=== PATIENT | male | born 1970 | race Hispanic/Latino ===

== ENCOUNTER 2021-01-12 22:27 | Emergency (ER) | payer OTHER, MEDICARE ==
[~2021-01-12] VITALS: Ht 195.6 cm; Wt 122.5 kg
[2021-01-12 22:38] VITALS: BP 132/93
[2021-01-12] MEDS ORDERED: ACETAMINOPHEN 500 MG TABLET PO ONE (23:00)
[2021-01-12] MEDS ORDERED: TETANUS/DIPHTHERIA TOXOID [ADULT] 0.5 ML VIAL IM ONE (23:00)
[2021-01-12] MEDS ORDERED: CEPH500C2 PO (23:40)
[2021-01-12] MEDS ORDERED: MUPI22OI2 TP (23:40)
== END 2021-01-12 23:48 | disposition home or self-care (01) ==
LOC: EDH 22:27
DX: S50.812A Abrasion of left forearm, initial encounter (principal); I10 Essential (primary) hypertension; E78.00 Pure hypercholesterolemia, unspecified; E11.9 Type 2 diabetes mellitus without complications; X58.XXXA Exposure to other specified factors, initial encounter; Y93.89 Activity, other specified; Y92.89 Other specified places as the place of occurrence of the external cause; Y99.8 Other external cause status
CPT/HCPCS: 90471; 90714

== ENCOUNTER 2021-01-26 01:43 | Emergency (ER) | payer OTHER, MEDICARE ==
[~2021-01-26] VITALS: Ht 195.6 cm; Wt 113.9 kg
[~2021-01-26 01:43] MED LIST: CEPH500C2 PO; MUPI22OI2 TP
[2021-01-26] MEDS ORDERED: KETOROLAC 15MG/ML VIAL (15MG/ML) IV ONE (03:00)
[2021-01-26] MEDS ORDERED: SOLU-MEDROL 125MG VIAL IVP ONE (03:00)
[2021-01-26 03:34] LABS: BASOPHILS % (AUTO) 0.4 % (0.0-5.0); EOSINOPHILS % (AUTO) 0.9 % (0.0-8.0); HEMATOCRIT 39.1 % (42-54); LYMPHOCYTES % (AUTO) 21.5 % (21.0-51.0); MEAN CORPUSCULAR HEMOGLOBIN 33.6 pg (27.0-33.0); MEAN CORPUSCULAR HGB CONC 37.6 g/dL (32.0-36.0); MEAN CORPUSCULAR VOLUME 89.3 fL (79-99); NEUTROPHILS % (AUTO) 64.9 % (40.0-77.0); PLATELET COUNT (AUTO) 144 K/uL (130-400); RED BLOOD CELL COUNT(AUTO) 4.38 MIL/uL (4.50-6.20); WHITE BLOOD COUNT (AUTO) 6.7 K/uL (4.8-10.8)
[2021-01-26 04:05] LABS: ALBUMIN 3.6 g/dL (3.5-5.0); CREATININE 0.8 mg/dL (0.5-1.5); CRP QUANTITATIVE 42.5 mg/L (0.00-9.0); POTASSIUM 3.6 mmol/L (3.5-5.1); TOTAL PROTEIN, SERUM 7.2 g/dL (6.0-8.3)
[2021-01-26] MEDS ORDERED: MORPHINE 4 MG SYG IV ONE (04:30)
[2021-01-26] MEDS ORDERED: ACET1TAB25 PO (04:32)
[2021-01-26] MEDS ORDERED: IBUP-2070 PO (04:32)
[2021-01-26 04:37] LABS: ERYTHROCYTE SEDIMENTATION RATE 10 MM/HR (0-20)
[2021-01-26 05:17] VITALS: BP 125/74
== END 2021-01-26 05:18 | disposition home or self-care (01) ==
LOC: EDH 01:43
DX: M25.522 Pain in left elbow (principal); E11.9 Type 2 diabetes mellitus without complications; E78.00 Pure hypercholesterolemia, unspecified; I10 Essential (primary) hypertension; Z79.1 Long term (current) use of non-steroidal anti-inflammatories (NSAID); Z79.52 Long term (current) use of systemic steroids
CPT/HCPCS: 36415; 80053; 85025; 85651; 86140; 96374; 96375; 99284; J1885; J2270; J2930